=== PATIENT | female | born 1990 | race Caucasian/White ===

== ENCOUNTER 2023-07-12 07:59 | Outpatient (OUT) | payer OTHER, SELFPAY ==
--- NOTE | 2023-07-12 08:53 | PM.PRESUREVA ---
History of Present Illness History of Present Illness Chief complaint: strain of peroneal tendon Narrative: Patient presents for preadmission testing. The patient reports right ankle pain with muscle spasms. She states she has a long history of issues with this ankle and she's had three prior surgeries. She states she has limited range of motion of her ankle, her pain is worse after standing for long periods of time and the muscle spasms wake her from sleep at times. She does take tizanidine which seems to help. She denies numbness, tingling, weakness, or any other complaints. Review of Systems ROS Narrative REVIEW OF SYSTEMS: Negative except as stated in HPI, ten or more systems reviewed. Constitutional: No fever , chills, weakness ENT: No sore throat or epistaxis Cardiovascular: No edema, chest pain, palpitations, or activity intolerance Respiratory: No shortness of breath, cough, or wheezing Gastrointestinal: No abdominal pain, constipation, diarrhea, or vomiting Genitourinary: No dysuria or hematuria Neurological: No numbness, tingling, weakness, or headache Psychiatric: No mood changes [facility] Medical History (Updated 07/12/23 @ 08:58 by Debbie Antunez NP) Anxiety ?F41.9 - Anxiety disorder, unspecified (ICD-10) Arthritis ?M19.90 - Unspecified osteoarthritis, unspecified site (ICD-10) Depression ?F32.A - Depression, unspecified (ICD-10) Endometriosis ?N80.9 - Endometriosis, unspecified (ICD-10) Hallux rigidus ?M20.20 - Hallux rigidus, unspecified foot (ICD-10) Impingement of right ankle joint ?M25.871 - Other specified joint disorders, right ankle and foot (ICD-10) Peroneal tendinitis, right leg ?M76.71 - Peroneal tendinitis, right leg (ICD-10) Peroneal tendon tear ?S86.319A - Strain of muscle(s) and tendon(s) of peroneal muscle group at lower leg level, unspecified leg, initial encounter (ICD-10) PONV (postoperative nausea and vomiting) ?R11.2 - Nausea with vomiting, unspecified (ICD-10) ?Z98.890 - Other specified postprocedural states (ICD-10) Right ankle instability ?M25.371 - Other instability, right ankle (ICD-10) Seizures ?R56.9 - Unspecified convulsions (ICD-10) Strain of right peroneal muscle or tendon ?S86.311A - Strain of muscle(s) and tendon(s) of peroneal muscle group at lower leg level, right leg, initial encounter (ICD-10) 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 - Villonodular synovitis (pigmented), unspecified ankle and foot (ICD-10) Surgical History (Updated 07/11/23 @ 12:21 by Debbie Antunez NP) H/O arthroscopy of knee ?Z98.890 - Other specified postprocedural states (ICD-10) H/O foot surgery (10/21/21) ?Z98.890 - Other specified postprocedural states (ICD-10) H/O foot surgery (05/02/21) ?Z98.890 - Other specified postprocedural states (ICD-10) H/O laparoscopy ?Z98.890 - Other specified postprocedural states (ICD-10) History of ankle surgery (07/24/22) ?Z98.890 - Other specified postprocedural states (ICD-10) History of appendectomy ?Z90.49 - Acquired absence of other specified parts of digestive tract (ICD-10) Hx of tonsillectomy ?Z90.89 - Acquired absence of other organs (ICD-10) Family History (Updated 07/11/23 @ 12:15 by Debbie Antunez NP) Other Multiple sclerosis Social History (Updated 07/11/23 @ 12:22 by Debbie Antunez NP) Within the past year, how often did you have a drink containing alcohol: 2-3 times a week Smoking status: Current every day smoker Non-prescribed substance use: denies use Previous occupational history: MA @ [employer] Highest level of school completed/degree received: some college, no degree Meds Home Medications and Allergies Home Medications Medication Instructions Recorded Confirmed Type acyclovir 400 mg tablet 400 mg PO DAILY 07/12/23 07/12/23 History tizanidine 4 mg capsule 4 mg PO BID PRN muscle spasticity 07/12/23 07/12/23 History Allergies Allergy/AdvReac Type Severity Reaction Status Date / Time No Known Drug Allergies Allergy Verified 07/12/23 08:19 Exam Narrative Exam Narrative: Constitutional: Awake, alert, comfortable, well-appearing, nontoxic, interactive, vital signs as charted Head: Normocephalic, atraumatic Neck: Supple, normal appearance, normal range of motion, no meningeal signs, no lymphadenopathy Respiratory: No respiratory distress, breath sounds clear Cardiovascular: Regular rate and rhythm, strong and regular heart tones Musculoskeletal: Right lateral ankle tenderness with palpation, limited range of motion, good capillary refill, sensation intact Skin: No rashes or induration, no lesions, only visible skin inspected Neuro: No neurological deficits, normal sensation Psychiatric: Oriented ?3, normal affect Assessment and Plan Assessment and Plan (1) Strain of right peroneal muscle or tendon: (2) Peroneal tendon tear: (3) Impingement of right ankle joint: Plan Right peroneal tendon transfer, right ankle arthroscopy scheduled with Dr. Robert 07/26/2023.
== END 2023-07-12 08:00 | disposition home or self-care (01) ==
LOC: PST 08:00
PROVIDERS: PCP Family Medicine; Visit Provider Podiatrist Foot & Ankle Surgery
DX: Z01.818 Encounter for other preprocedural examination (principal); S86.311S Strain of muscle(s) and tendon(s) of peroneal muscle group at lower leg level, right leg, sequela; M25.871 Other specified joint disorders, right ankle and foot
CPT/HCPCS: G0463

== ENCOUNTER 2023-07-26 06:12 | Day surgery (SDC) | payer OTHER, SELFPAY ==
[2023-07-12 08:42] VITALS: BP 135/88; PULSE 68; RESP 18; TEMP 36.4; O2SAT 99; BMI 26.9
[2023-07-26] VITALS (14 sets, daily range): BP systolic 103–145; BP diastolic 73–92; PULSE 55–93; RESP 12–20; TEMP 36.1–36.8; O2SAT 95–99
[2023-07-26 06:25] LABS: Basophils Absolute Auto 0.1 10^3/uL (0.0-0.1); Basophils Percent Auto 0.5 % (0.2-2.0); Eosinophils Absolute Auto 0.4 10^3/uL (0.0-0.7); Eosinophils Percent Auto 3.8 % (0.9-7.0); Hematocrit 38.6 % (36.0-48.0); Hemoglobin 12.6 g/dL (12.0-16.0); Immature Granulocytes Abs Auto 0.03 10^3/uL (0.00-0.03); Immature Granulocytes Pct Auto 0.3 % (0.0-0.5); Lymphocytes Absolute Auto 2.9 10^3/uL (1.2-3.8); Lymphocytes Percent Auto 29.9 % (20.5-60.0); Mean Corpuscular HGB Conc 32.6 g/dL (29.9-35.2); Mean Corpuscular Hemoglobin 30.9 pg (26.7-34.0); Mean Corpuscular Volume 94.6 fL (81.0-99.0); Mean Platelet Volume 10.4 fL (9.5-13.5); Monocytes Absolute Auto 0.7 10^3/uL (0.3-0.8); Monocytes Percent Auto 6.8 % (1.7-12.0); Neutrophils Absolute Auto 5.8 10^3/uL (1.4-6.5); Neutrophils Percent Auto 58.7 % (43.0-75.0); Platelet Count 229 10^3/uL (150-450); Red Blood Count 4.08 10^6/uL (4.20-5.40); Red Cell Distribution Width 12.9 % (11.0-15.0); White Blood Count 9.8 10^3/uL (4.0-11.0)
[2023-07-26 06:38] LABS: Glucometer 95 mg/dL (74-106)
[2023-07-26 06:40] LABS: HCG Qualitative NEGATIVE (NEGATIVE)
[2023-07-26] MEDS: LACTATED RINGER'S SOLUTION 1,000 ML 50 ML IV (07:01)
[2023-07-26] MEDS: SCOPOLAMINE 1 MG/3 DAYS TRANSDERM PATCH 1 PATCH TD (07:19)
[2023-07-26] MEDS: CEFAZOLIN SODIUM/DEXTROSE,ISO 2 GM/50 ML PIGGYBACK IV (07:50)
--- NOTE | 2023-07-26 08:26 | PM.ORONB ---
Brief Operative Note Date of procedure: 07/26/23 Preoperative Details Reason for procedure: patient is a 32-year-old female well known to my practice who underwent right 1st MPJ fusion on 10/21/21 as well as right lateral ankle stabilization, peroneal tendon repair and ankle arthroscopy on 07/24/22. dorsally she began having worsening pain along the peroneal tendons associated with cramping of the lateral compartment muscles. Follow-up MRI was obtained which does show postsurgical changes but no evidence of osteochondral defect in the collateral ligaments although there were postsurgical changes did appear to be intact. There was a longitudinal split tear of the brevis within the fibular groove indicating repeat tear versus failure to heal the tendon repair performed last year. She is initially treated nonsurgically but unfortunately did not respond given her symptoms have only worsened over the last six months patient wished to proceed with surgical revision. Today in preoperative holding she related to worsening pain on the plantar lateral aspect of the 5th metatarsal head associated with a prominent callus. Examination revealed enlargement of the lateral eminence of the 5th metatarsal head and adductovarus reducible contracture of the 5th toe. she wished to proceed with revision peroneal tendon repair as well as ankle arthroscopy given her symptoms of impingement in the anterior medial ankle as well as correction of the tailor's bunion and 5th hammertoe. She is educated all potential risks and benefits and all questions were answered to her satisfaction
--- NOTE | 2023-07-26 08:33 | P.ORON_ITS ---
Brief Operative Note Date of procedure: 07/26/23 Pre-op diagnosis: right peroneal tendon tear, ankle impingement,possible lateral ankle instab Post-op diagnosis: other (right peroneal tendon tear, ankle impingement, possible lateral ankle instability, tailor's bunion and 5th hammertoe) Procedure: PROCEDURES PERFORMED: Ankle arthroscopy, peroneal tendon transfer, tailor's bunionectomy, arthroplasty PIPJ of 5th toe, intraoperative stress examination of right ankle Application of short leg splint with all procedures performed on the ____ ankle INTRAOPERATIVE FINDINGS: PROCEDURE IN DETAIL: Patient was identified in pre op and consent was reviewed. Correct side and site were identified and marked. Pre-op antibiotics were started. Patient was brought to OR suite and place on table in a supine position. General anesthesia was administered. Tourniquet applied. under intraoperative fluoroscopy, bilateral ankles were stressed in anterior drawer and varus and valgus tilt. Stability was determined to be sufficient bilaterally as well as symmetric. Operative e xtremity was prepped and draped in usual sterile fashion. Formal time-out was performed and the foot/ankle were exsanguinated and tourniquet inflated. A 15 blade was used to create anterior medial ankle portal followed by use of hemostat and trochar then the arthroscopic camera was inserted. Anterior lateral portal was similarly created in standard safe location after identifying intermediate dorsal cutaneous nerve. All impingement and synovitic tissue was removed using a 3.5 mm aggressive shaver. No cartilage defect was noted. Arthroscopic instrumention was then removed. The portals were then closed with nylon suture. Peroneal tendons: Lateral ankle incision was made over the posterior aspect of the fibular malleolus and extend past the fibular tip. Dissection was then carried posteriorly. Peroneal retinaculum and tendon sheath were incised to expose the peroneal tendons. The peroneal tendons were dislocated from the fibular groove for close inspection. There was synovitis and low lying peroneal brevis muscle which was excised. Inspection of the tendons demonstrated The tendons were then relocated in the fibular groove which was of adequate depth. Range of motion of the ankle demonstrated no subluxation and smooth gliding of the peroneal tendons. Lateral Ankle Stabilization: Meticulous blunt dissection was used to expose the ATFL and associated capsular tissue. The ATFL was thickend and lax upon stress examination. The ATFL was incised and arthrotomy was performed. The periosteum off of the distal lateral fibula was elevated from the fibular tip. A rongeur was used on the distal anterior fibular malleolus to create a trough. Drill holes were created in the trough created on distal fibula. Two ---- mm suture anchors were inserted into the drill holes created according to manufacture's directions. All sutures in all were passed through the ATFL then passed through the extensor retinaculum. The foot was then held in maximum dorsiflexion and eversion and the sutures were tied. The sutures were then passed through the periosteum of the fibula to reapproximate all capsular and periosteal tissue. The sututres were then tied and cut. Anterior drawer was negative and ankle had good ROM. The surgical site was irrigated with copious amounts sterile saline. The tendon sheath was reapproximated and the superior peroneal retinaculum repaired with a pants over vest absorbable suture. With attention to the 5th digit a semi-elliptical dorsal incision was created over the PIPJ. Sharp and blunt dissection down to the extensor tendon was performed. The tendon was incised transversely then reflected proximally. A sagittal saw was used to remove the proximal phalanx head. The site was flushed with sterile saline. incision was placed over the dorsal lateral aspect of the 5th metatarsal phalangeal joint. Comminution sharp and blunt dissection gained access to the capsule which was reflected and a McGlamry was used to release the joint. A sagittal saw was used to remove the lateral eminence of the 5th metatarsal head which was then excised and passed back table. A rasp was then used to contour the head. No bony prominence remained. all surgical sites were flushed with copious saline. The tendon to the 5th toe was repaired with absorbable suture. incision was then closed in layers. the tourniquet was deflated with a prompt hyperemic response. A dry sterile dressing consisting of Xeroform on the incisions followed by 4 x 4 gauze, ABDs, and Kerlix were applied. Multiple layers of cast padding were then applied to ensure all bony prominences were well-padded. A plaster posterior splint was then applied which was held in place by Adams wraps. Capillary refill time to all digits was evaluated and had appropriate response. POSTOPERATIVE PLAN: Discharge home under family's care Post op instructions provided verbally and written prescription(s) were placed in chart [facility]B operative foot/ankle x1 wks Follow-up in 1 week Anesthesia: regional and General-LMA Surgeon: Marcellus Robert Personnel Clerk: Kennedy Vila Estimated blood loss (mL): 10 Pathology: other (peroneal tendon) Condition: stable Disposition: PACU
[2023-07-26] MEDS: BUPIVACAINE HCL 0.5% PF 50 MG/10 ML VIAL 20 ML INJ (09:53)
[2023-07-26 10:30] LABS: Glucometer 110 mg/dL (74-106)
[2023-07-26] MEDS: PROMETHAZINE HCL 25 MG/ML VIAL 12.5 MG IV (10:40)
[2023-07-26] MEDS: OXYCODONE HCL/ACETAMINOPHEN 5MG/325MG 1 TAB PO (10:40)
[2023-07-26] MEDS: HYDROMORPHONE HCL 0.5 MG/0.5 ML SYRINGE 0.4 MG IV (10:40)
== END 2023-07-26 11:50 | disposition home or self-care (01) ==
PROVIDERS: Anesthesiology; PCP Family Medicine; Visit Provider Podiatrist Foot & Ankle Surgery
PROC: (CPT 27691; principal; 2023-07-26 07:30)
DX: M25.871 Other specified joint disorders, right ankle and foot (principal); S86.311S Strain of muscle(s) and tendon(s) of peroneal muscle group at lower leg level, right leg, sequela; F41.9 Anxiety disorder, unspecified; F32.A Depression, unspecified; M25.371 Other instability, right ankle; M12.2 Villonodular synovitis (pigmented); M76.71 Peroneal tendinitis, right leg; Z90.49 Acquired absence of other specified parts of digestive tract; F17.210 Nicotine dependence, cigarettes, uncomplicated; M62.838 Other muscle spasm; M20.41 Other hammer toe(s) (acquired), right foot; M21.621 Bunionette of right foot
CPT/HCPCS: 27691; 28285; 29898; 36415; 64445; 82948; 84703; 85025; 88304; J1170; J2704

== ENCOUNTER 2024-06-25 12:14 | Outpatient (OUT) | payer OTHER, SELFPAY ==
--- NOTE | 2024-06-25 | XR_ITS ---
The [address] [address] Patient Name: RAQUEL GOODMAN MRN: [id number] date: 1990 Sex: F Assigned Patient Location: [facility] Current Patient Location: Accession/Order Number: [id number] Exam Date: 06/25/2024 12:16 Report Date: 06/27/2024 07:03 At the request of: ILSA PHILIP Procedure: XR ankle RT min 3V PROCEDURE: XR ankle RT min 3V COMPARISON: None. HISTORY: RIGHT ANKLE PAIN FINDINGS: BONES:No fracture, acute abnormality, or significant arthropathy. SOFT TISSUES:Negative. No visible soft tissue swelling. EFFUSION:None visible. OTHER: Negative. XR/XR ankle RT min 3V IMPRESSION: No acute abnormality Electronically authenticated by: PIEDAD SANDOVAL Date: 06/27/2024 07:03
--- OUTSIDE RECORDS SUMMARY | 2024-06-25 12:17 | XMS_ITS | CCD ---
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 Comment on above: Result Comment: HDL CHOL ATP-III CLASSIFICATION Cardiovascular Risk HDL > or equal to 60 mg/dL LOW HDL < 40 mg/dL HIGH Performed By: #### C MP, LIPID, TSH3, CBC #### [facility] [address] [place] [id number] [place] Cholesterol.total/Choles terol in HDL [Mass ratio] 3.9 {ratio} Normal <5.0 [facility] Comment on above: Performed By: #### C MP, LIPID, TSH3, CBC #### [facility] [address] [place] [id number] [place] LDL Cholesterol,Calculated 105 mg/dL High 0-100 [facility] Comment on above: Result Comment: LDL ATP III CLASSIFICATION LDL less than 100 mg/dL Optimal LDL 100-129 mg/dL Near or above optimal LDL 130-159 mg/dL Borderline high LDL 160-189 mg/dL High LDL greater than 189 mg/dL Very high Performed By: #### C MP, LIPID, TSH3, CBC #### [facility] [address] [place] [id number] [place] Triglyceride w/Reflex 66 mg/dL Normal 0-149 [facility] Comment on above: Result Comment: TRIG ATP III CLASSIFICATION TRIG less than 150 mg/dL Normal TRIG 150-199 mg/dL Borderline high TRIG 200-500 mg/dL High TRIG greater than 500 mg/dL Very high Standard traceable to the Center for Disease Conrtrol and Prevention (CDC) test method. Performed By: #### C MP, LIPID, TSH3, CBC #### [facility] [address] VLDL CHOLESTEROL 13 mg/dL Normal [facility] Comment on above: Performed By: #### C MP, LIPID, TSH3, CBC #### [facility] [address] [place] [id number] [facility] Lymphocytes Auto (Bld) [#/Vo l]Ordered By: Gerhard York on 11-30-2023 Lymphocytes (Bld) [#/Vol] 2.3 10*3/uL 1.00-4.8 [facility] Lymphocytes/100 WBC Auto (Bl d)Ordered By: Gerhard York on 11-30-2023 Lymphocytes/100 WBC (Bld) 22.4 % . [facility] MCH Auto (RBC) [Entitic mass ]Ordered By: Gerhard York on 11-30-2023 MCH (RBC) [Entitic mass] 30.4 pg 24.7-34.3 [facility] MCHC Auto (RBC) [Mass/Vol]Or dered By: Gerhard York on 11-30-2023 MCHC (RBC) [Mass/Vol] 33.1 g/dL 32.0-35.0 [facility] MCV Auto (RBC) [Entitic vol] Ordered By: Gerhard York on 11-30-2023 MCV (RBC) [Entitic vol] 92.0 fL 80-100 [facility] Monocytes Auto (Bld) [#/Vol] Ordered By: Gerhard York on 11-30-2023 Monocytes (Bld) [#/Vol] 0.7 10*3/uL 0.0-0.8 [facility] Monocytes/100 WBC Auto (Bld) Ordered By: Gerhard York on 11-30-2023 Monocytes/100 WBC (Bld) 6.4 % . [facility] Neutrophils Auto (Bld) [#/Vo l]Ordered By: Gerhard York on 11-30-2023 Neutrophils (Bld) [#/Vol] 7.0 10*3/uL 1.8-7.7 [facility] Neutrophils/100 WBC Auto (Bl d)Ordered By: Gerhard York on 11-30-2023 Neutrophils/100 WBC (Bld) 66.5 % . [facility] No Panel InformationOrdered By: Gerhard York on 11-30-2023 Estimated GFR (CKD-EPI) > 60.0 mL/Min [facility] Creatinine Clearance (Chem N/A [facility] Nucleated erythrocytes [Pres ence] in Blood by Automated countOrdered By: Gerhard York on 11-30-2023 Nucleated RBC Auto Ql (Bld) 0.1 /100{WBC} 0-0.5 [facility] Platelet mean volume Auto (B ld) [Entitic vol]Ordered By: Gerhard York on 11-30-2023 Platelet mean volume (Bld) [Entitic vol] 10.0 fL 6.3-10.7 [facility] Platelets Auto (Bld) [#/Vol] Ordered By: Gerhard York on 11-30-2023 Platelets (Bld) [#/Vol] 211 10*3/uL 150-450 [facility] Potassium [Moles/volume] in Serum or PlasmaOrdered By: Gerhard York on 11-30-2023 Potassium [Moles/Vol] 4.1 mmol/L 3.5-5.1 [facility] Protein [Mass/volume] in Ser um or PlasmaOrdered By: Gerhard York on 11-30-2023 Protein [Mass/Vol] 6.3 g/dL 6.4-8.9 [facility] RBC Auto (Bld) [#/Vol]Ordere d By: Gerhard York on 11-30-2023 RBC (Bld) [#/Vol] 4.40 10*6/uL 3.60-5.00 [facility] Serum or plasma albumin/glob ulin mass ratioOrdered By: Gerhard York on 11-30-2023 Albumin/Globulin [Mass ratio] 2.2 {ratio} [facility] Serum or plasma anion gap de terminationOrdered By: Gerhard York on 11-30-2023 Anion gap [Moles/Vol] 7.0 mmol/L 6.0-15.0 [facility] Serum or plasma high density lipoprotein (HDL) cholesterol measurementOrdered By: Gerhard York on 11-30-2023 Cholesterol in HDL [Mass/Vol] 41 mg/dL 23-92 [facility] Comment on above: HDL CHOL ATP-III CLA SSIFICATION Cardiovascular RiskHDL > or equal to 60 mg/dL LOWHDL < 40 mg/dL HIGH Serum or plasma total choles terol/high density lipoprotein (HDL) cholesterol mass ratOrdered By: Gerhard York on 11-30-2023 Cholesterol.total/Choles terol in HDL [Mass ratio] 3.9 {ratio} <5.0 [facility] Sodium [Moles/volume] in Ser um or PlasmaOrdered By: Gerhard York on 11-30-2023 Sodium [Moles/Vol] 139 mmol/L 136-145 [facility] Thyroid Stimulating Hormoneo n 11-30-2023 TSH Qn 2.73 m[IU]/L Normal 0.45-5.33 [facility] Comment on above: Result Comment: PERF ORMED BY: [place] [address] PATHOLOGIST BRASS CUTTER AMADA GUTHRIE M.D. Performed By: #### C MP, LIPID, TSH3, CBC #### [address] Thyrotropin [Units/volume] i n Serum or PlasmaOrdered By: Gerhard York on 11-30-2023 TSH Qn 2.73 m[IU]/L 0.45-5.33 [facility] Triglyceride [Mass/volume] i n Serum or PlasmaOrdered By: Gerhard York on 11-30-2023 Triglyceride [Mass/Vol] 66 mg/dL 0-149 [facility] Comment on above: TRIG ATP III CLASSIF ICATIONTRIG less than 150 mg/dL NormalTRIG 150-199 mg/dL Borderline highTRIG 200-500 mg/dL High TRIG greater than 500 mg/dL Very highStandard traceable to the Center for Disease Conrtrol and Prevention (CDC) test method. Urea nitrogen [Mass/volume] in Serum or PlasmaOrdered By: Gerhard York on 11-30-2023 Urea nitrogen [Mass/Vol] 7 mg/dL 7-25 [facility] WBC Auto (Bld) [#/Vol]Ordere d By: Gerhard York on 11-30-2023 WBC (Bld) [#/Vol] 10.5 10*3/uL 3.8-11.6 [facility] MR ankle RT wo conon 023 MR ankle RT wo con [facility] [place] [address] MRI Report Signed Patient: Arianne Bocanegra MR#: [id number] : 1990 Acct:[id number] Age/Sex: 32 / F ADM Date: 02/28/23 Loc: MR [facility]: [facility]: Ilsa Robert DPM, [place] Copies to: Ilsa Robert DPM, Ordering Provider: Ilsa Robert DPM, MS Date of Service: 02/28/23 MR/MR ankle RT wo con: [id number] MR ankle RT wo con 02/28/2023 6:00 PM SIGNS AND SYMPTOMS: Continued right ankle pain, pain along the lateral aspect posterior to the lateral malleolus. PROTOCOL: Multiplanar multisequence MR images of the right ankle were obtained without IV contrast COMPARISON: 06/12/2022 FINDINGS: Alignment: Normal. Fluid: Tibiotalar: No joint effusion. Subtalar: No joint effusion. Medial: Medial malleolus: Normal. Tendons: Posterior tibial tendon: There is linear T2 signal traversing the posterior tibial tendon near the insertion suspicious for a split-thickness tear. This was not visualized on the prior exam. Flexor digitorum longus: Intact. Flexor hallucis longus: Intact. Ligaments: Deltoid ligament complex - superficial: Intact. Deltoid ligament complex - deep: Intact. Spring (plantar calcaneo-navicular) ligament: Intact. Lateral: Lateral malleolus: Intact with postsurgical changes noted suggesting previous ligament repair. This is not compared to the prior exam. Retromalleolar groove: Normal. Tendons: Peroneus longus: Intact. Peroneus brevis: There is a split thickness tear of the Peroneus brevis tendon which is not compared to the prior exam with edema consistent with tenosynovitis.. Peroneal retinaculum: Intact. Ligaments: Anterior inferior tibiofibular (syndesmosis): There is evidence of prior disruption.. Posterior inferior tibiofibular (syndesmosis): Intact. Anterior talofibular ligament: Previously disrupted. This is new compared to the prior exam.. Calcaneofibular ligament: Previously disrupted. This is new when compared to the prior exam.. Posterior talofibular ligament: Intact. Posterior: Posterior talus: Normal. Intermalleolar ligament: Intact. Achilles tendon: Intact. Plantar fascia: Intact. Anterior: Tendons: Anterior tibial tendon: Intact. Extensor hallucis longus: Intact. Extensor digitorum longus: Intact. Tibiotalar joint: Normal. Subtalar joint: Normal. Bones (other than subarticular marrow): Normal. Muscles: Normal Tarsal tunnel: Normal. Sinus tarsi: Normal. MR/MR ankle RT wo con IMPRESSION: There is a split thickness tear of the Peroneus brevis tendon which is not compared to the prior exam with edema consistent with tenosynovitis.. There is linear T2 signal traversing the posterior tibial tendon near the insertion suspicious for a split-thickness tear. This was not visualized on the prior exam. There has been interval disruption and attempted repair of the anterior inferior tibiofibular ligaments, anterior talofibular ligament, and calcaneofibular ligament. Impression dictated by: Oscar Schmidt M.D.03/01/2023 8:17 AM Dictation Location: [place] [address] Transcribed By: [facility] 03/01/23816 Dictated By: Oscar Schmidt II, MD 03/01/23 0806 Signed By: 03/01/23816 Normal [facility] Choriogonadotropin.beta subu nit [Units/volume] in Serum or PlasmaOrdered By: Bladimir Florian on 12-15-2022 HCG.beta subunit Qn 0.64 m[IU]/mL [facility] Comment on above: Approximate Approxim ate hCG Gestational Age Range (mIU/ml) (weeks)0.2-1 5-50 1-2 50-500 2-3 100-5,000 3-4 500-10,000 4-5 1,000-50,000 5-6 10,000-100,000 6-8 15,000-200,000 -12 10,000-100,000 XR FOOT RT 2Von 07-25-2022 XR FOOT RT 2V EXAM: XR FOOT RT 2V HISTORY: Pain COMPARISON: None. TECHNIQUE: 21 seconds of fluoroscopy. 6 images. FINDINGS: 5 fluoroscopic images of the ankle and forefoot. No definite ankle instability with stress IMPRESSION: Fluoroscopic images as described Electronically authenticated by: PIEDAD SANDOVAL Date: 2022-07-25 07:26 Normal [facility] POINT OF CARE GLUCOSEon 07-11 Glucose [Mass/Vol] 103 mg/dL Normal 74-106 [facility] Comment on above: Performed By: #### P OCGLUC #### [facility] [address] [place] [address] Dr. Neli Clarke Glucose [Mass/Vol] 102 mg/dL Normal 74-106 [facility] Comment on above: Performed By: #### P OCGLUC #### [facility] [address] [place] [address] [address] Neli Clarke PREG HCG QUALon 07-24-2022 , QUAL Negative Normal NEGATIVE [facility] Comment on above: Performed By: #### P REG #### [facility] [address] [place] [address] Dr. Neli Clarke [facility] 07-11 SARS-CoV-2 (COVID-19) RNA PERLA+probe Ql (Unsp spec) Not detected Normal NOT DETECTED [facility] Comment on above: Result Comment: This test is not yet approved or cleared by the [place] FDA. When there are no FDA-approved or cleared tests available, and other criteria are met, FDA can make tests available under an emergency access mechanism called an Emergency Use Authorization (EUA). The EUA for this test is supported by the [place] of Health and Human Service's (HHS's) declaration that circumstances exist to justify the emergency use of in vitro diagnostics for the detection and/or diagnosis of the virus that causes COVID-19. This EUA will remain in effect (meaning this test can be used) for the duration of the COVID-19 declaration justifying emergency of IVDs, unless it is terminated or revoked by FDA (after which the test may no longer be used). When diagnostic testing is negative, the possibility of a false negative should be considered in the context of a patient's recent exposures and the presence of clinical signs and symptoms consistent with SARS-CoV-2. Performed By: #### C [facility] #### [facility] [address] [place] [address] [address] Neli Negron 03-29-2020 CNOV Office Visit ([facility] ) ANASTASIAARIANNE ([id number]) 1990 F Date Time Provider Department 03/29/20 10:40 AM LIOR HARDIN JR During your visit today, we recorded the following information about you: Lior Hardin Jr, MD 03/29/2020 12:52 PM Signed HISTORY OF PRESENT ILLNESS: Arianne is a 29 year old female. She is here for evaluation of Left knee pain. The patient has a long-standing history of left knee problems. She had a lateral release done on the left side for patellofemoral instability. She reports long-standing knee issues, with one year of worsening pain since her knee gave out at work. The pain is usually medial but now she is having lateral and posterior knee pain. The patient reports that she feels the knee needs to be replaced due to the severity of her symptoms. Injury:Yes, injury at work a year ago where the knee gave out Metal allergy: No Location: Knee Left Pain: Yes LOCATION: Lateral pain as well as posterior pain left knee PAIN SCALE: 7 on a scale of 0-10 PAIN CHARACTER: aching and sharp DURATION: (How long have you had the pain?) 1 years FREQUENCY: (How often does the pain occur?) occurs daily Onset: progressive Quality: aching and sharp Swelling: Patient notes intermittent swelling of the joint. Aggravating/alleviatin g factors:Aggravating Factors: Bending or twisting motions, Deep squatting, Rapid change of direction, Regular daily ambulation Alleviating Factors: Rest Mechanical symptoms: catching, instability and locking Radiation: No Activities: walking Restriction: none Progression: Worsening Previous treatment: no medications, physical therapy, injections, bracing, advanced imaging or surgical evaluation NSAIDS: Patient has not used any prescription, OTC or herbal medications to aid in relief of this problem. PT:No physical therapy program has been initiated. MEDICATIONS Current Outpatient Medications on File Prior to Visit Medication Sig - ETONOGESTREL (NEXPLANON SDRM) by SUBDERMAL route. No current facility-administered medications on file prior to visit. ALLERGIES ALLERGIES No Known Allergies PAST MEDICAL HISTORY No past medical history on file. PAST SURGICAL HISTORY No past surgical history on file. SOCIAL HISTORY Marital Status: Tobacco: Smoker Alcohol: Unknown FAMILY HISTORY Does a similar condition to what you are experiencing run in your family? 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 No ROS: Have you or are you being treated for any conditions in the following areas: Head: No Eyes: No ENT: No Lungs: No Heart/BP: No Gastrointestinal: No Nephrology: No Neurological: No Psych: No Diabetes: No Rheumatology: No PHYSICAL EXAM: Examination of the Left Knee Gait: Normal No Limp antalgic:left Inspection: neutral Symmetry: Swelling no Redness no Ecchymosis no Effusion: 1 Palpation: Tenderness Yes: Knee: Lateral Joint Line and Medial and lateral patellar borders ROM: Knee- Normal Strength: 5 Stability: ligamentous instability with valgus/varus and anterior/posterior drawer stressing no Kavon: Positive Thessaly: Positive Modified Apley: Positive [place]: Negative Patellar Compression: Positive Neurological/Vascular: Sensation grossly intact. Dorsalis pedis pulse palpable and 2+. Skin: Normal RADIOGRAPHS (personally reviewed): The patient's maintaining a joint space between the femur and the tibia bilaterally. She has lateral patellar tilt bilaterally left worse than the right. MRI: None DIAGNOSIS Encounter Diagnosis ICD-10-CM 1. Lateral meniscus derangement, left M23.301 MRI KNEE WO IVCON LT 2. Patellofemoral instability of left knee with pain M25.362 M25.562 PLAN The patient has clinical findings as well as subjective complaints that could be consistent with a meniscal tear. The patient is having issues where she is almost falling down. She is working in a job where she is moving heavy pieces of metal. Obviously this will not do. We're going to put in for an MRI, looking for a lateral meniscal tear. PROCEDURE: Procedures Lior Hardin Jr, MD Referring Provider: SELF [[id number]] Allergies As of Date: 03/29/2020 (No Known Allergies) Date Reviewed: 03/29/2020 Reviewed by: Audrey Mott Ma - Fully Assessed Reason for Visit: Left Knee Pain [1208] New [706420] Primary Visit Diagnosis:Lateral meniscus derangement, left [M23.301] Other Visit Diagnosis:Patellofemor al instability of left knee with pain [M25.362, M25.562] Order(s):MRI KNEE WO IVCON LT [[id number]] Order #: [id number] FUTURE Prescriptions as of 03/29/2020 Sig: NEXPLANON SDRM by SUBDERMAL route. Problem List As Of Date 03/29/2020 Noted Resolved Knee pain [M25.569] 10/06/2011 Sprain, knee [S83.90XA] 04/30/2015 Synovitis of knee [M65.9] 04/30/2015 Encounter Status:Closed by LIOR HARDIN JR, MD on 03/29/20 [facility] PROGRESSon 03-29-2020 PROGRESS HNO ID: [id number] Author: Lior Hardin Jr. Service: ? Author Type: Physician Type: Progress Notes Filed: 03/29/2020 12:52 PM Note Text: HISTORY OF PRESENT ILLNESS: Arianne is a 29 year old female. She is here for evaluation of Left knee pain. The patient has a long-standing history of left knee problems. She had a lateral release done on the left side for patellofemoral instability. She reports long-standing knee issues, with one year of worsening pain since her knee gave out at work. The pain is usually medial but now she is having lateral and posterior knee pain. The patient reports that she feels the knee needs to be replaced due to the severity of her symptoms. Injury:Yes, injury at work a year ago where the knee gave out Metal allergy: No Location: Knee Left Pain: Yes LOCATION: Lateral pain as well as posterior pain left knee PAIN SCALE: 7 on a scale of 0-10 PAIN CHARACTER: aching and sharp DURATION: (How long have you had the pain?) 1 years FREQUENCY: (How often does the pain occur?) occurs daily Onset: progressive Quality: aching and sharp Swelling: Patient notes intermittent swelling of the joint. Aggravating/alleviatin g factors:Aggravating Factors: Bending or twisting motions, Deep squatting, Rapid change of direction, Regular daily ambulation Alleviating Factors: Rest Mechanical symptoms: catching, instability and locking Radiation: No Activities: walking Restriction: none Progression: Worsening Previous treatment: no medications, physical therapy, injections, bracing, advanced imaging or surgical evaluation NSAIDS: Patient has not used any prescription, OTC or herbal medications to aid in relief of this problem. PT:No physical therapy program has been initiated. MEDICATIONS Current Outpatient Medications on File Prior to Visit Medication Sig - ETONOGESTREL (NEXPLANON SDRM) by SUBDERMAL route. No current facility-administered medications on file prior to visit. ALLERGIES ALLERGIES No Known Allergies PAST MEDICAL HISTORY No past medical history on file. PAST SURGICAL HISTORY No past surgical history on file. SOCIAL HISTORY Marital Status: Tobacco: Smoker Alcohol: Unknown FAMILY HISTORY Does a similar condition to what you are experiencing run in your family? 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 No ROS: Have you or are you being treated for any conditions in the following areas: Head: No Eyes: No ENT: No Lungs: No Heart/BP: No Gastrointestinal: No Nephrology: No Neurological: No Psych: No Diabetes: No Rheumatology: No PHYSICAL EXAM: Examination of the Left Knee Gait: Normal No Limp antalgic:left Inspection: neutral Symmetry: Swelling no Redness no Ecchymosis no Effusion: 1 Palpation: Tenderness Yes: Knee: Lateral Joint Line and Medial and lateral patellar borders ROM: Knee- Normal Strength: 5 Stability: ligamentous instability with valgus/varus and anterior/posterior drawer stressing no Kavon: Positive Thessaly: Positive Modified Apley: Positive [place]: Negative Patellar Compression: Positive Neurological/Vascular: Sensation grossly intact. Dorsalis pedis pulse palpable and 2+. Skin: Normal RADIOGRAPHS (personally reviewed): The patient's maintaining a joint space between the femur and the tibia bilaterally. She has lateral patellar tilt bilaterally left worse than the right. MRI: None DIAGNOSIS Encounter Diagnosis ICD-10-CM 1. Lateral meniscus derangement, left M23.301 MRI KNEE WO IVCON LT 2. Patellofemoral instability of left knee with pain M25.362 M25.562 PLAN The patient has clinical findings as well as subjective complaints that could be consistent with a meniscal tear. The patient is having issues where she is almost falling down. She is working in a job where she is moving heavy pieces of metal. Obviously this will not do. We're going to put in for an MRI, looking for a lateral meniscal tear. PROCEDURE: Procedures Lior Hardin Jr, MD Normal [facility] PROGRESS HNO ID: [id number] Author: Ally DominiqueRt) Mimi Service: ? Author Type: Inside Sales Representative Type: Progress Notes Filed: 03/29/2020 10:29 AM Note Text: Radiology Service Progress Note PATIENT NAME: Arianne Reyes DATE OF SERVICE: March 29, 2020 TIME: 10:26 AM PATIENT IDENTITY VERIFICATION COMPLETED USING TWO (2) IDENTIFIERS: Name and Date of confirmed by patient verbally. FALL SCREENING: Has the patient had 2 falls in the last year or 1 fall with injury or currently using an Ambulatory Assistive Device (Walker, Cane, Wheelchair, Crutches, etc.)? No PATIENT GENDER DATA: Female. status: : No status: NO. PATIENT RELEVANT IMPLANT DATA REVIEWED: Not Applicable RADIOLOGY DEPARTMENT: General X-ray: Exam(s) Completed: Lower Extremity X-Ray(s): Knee, AP / Lat / Tunne / Merchant Left and Wt. Bearing: PERIPHERAL IV DATA: Not applicable SIGNED BY: Suyapa Conway RT March 29, 2020 10:26 AM Normal [facility] XR KNEE 4V AP/PA BOTH+LAT/ME R LTon 03-29-2020 XR KNEE 4V AP/PA BOTH+LAT/EFFIE LT * * *Final Report* * * DATE OF EXAM: Mar 29 2020 10:29AM AFR 5202 - XR KNEE 4V AP/PA BOTH+LAT/EFFIE LT / PROCEDURE REASON: Pain * * * * Physician Interpretation * * * * X-RAYS LEFT KNEE HISTORY: medail left knee pain. Pain TECHNIQUE: 4 views of the left knee. COMPARISON: None RESULT: No fracture or dislocation. Joint spaces are maintained. No joint effusion. IMPRESSION: Unremarkable exam left knee. Table Maker: TIARRA Transcribe Date/Time: Mar 29 2020 2:21P Dictated by : LISA CANALES MD This examination was interpreted and the report reviewed and electronically signed by: LISA CANALES MD on Mar 29 2020 2:21PM EST [id number] Normal [facility] Vital Signs Date Time Vital Sign Value Performing Clinician Facility 12-04-2023 14:03-0400 Body height 162.56 cm DO Gerhard Kuns Work Phone: [facility] 12-04-2023 14:03-0400 Body mass index (BMI) [Ratio] 27.3 kg/m2 DO Gehrard Kuns Work Phone: [facility] 12-04-2023 14:03-0400 Body weight 72.12 kg DO Gerhard Kuns Work Phone: [facility] 12-04-2023 14:03-0400 Diastolic blood pressure 75 mm[Hg] DO Gerhard Kuns Work Phone: [facility] 12-04-2023 14:03-0400 Heart rate 84 /min DO Gerhard Kuns Work Phone: [facility] 12-04-2023 14:03-0400 Respiratory rate 18 /min DO Gerhard Kuns Work Phone: [facility] 12-04-2023 14:03-0400 SaO2% (BldA) [Mass fraction] 96 % DO Gerhard Kuns Work Phone: [facility] 12-04-2023 14:03-0400 Systolic blood pressure 120 mm[Hg] DO Gerhard Kuns Work Phone: [facility] 01-25-2023 16:00-0500 Body height 165.1 cm Gerhard Kuns Other [facility] Other 10-04-2022 16:00-0500 Body mass index (BMI) [Ratio] 27.12 kg/m2 Gerhard Kuns Other [facility] Other 10-04-2022 16:00-0500 Body weight 73.94 kg Gerhard Kuns Other [facility] Other 10-04-2022 16:00-0500 Diastolic blood pressure 86 mm[Hg] Gerhard Kuns Other [facility] Other 10-04-2022 16:00-0500 Respiratory rate 16 /min Gerhard Kuns Other [facility] Other 10-04-2022 16:00-0500 SaO2% (BldA) [Mass fraction] 98 % Gerhard Kuns Other [facility] Other 10-04-2022 16:00-0500 Systolic blood pressure 126 mm[Hg] Gerhard Kuns Other [facility] Other 07-06-2022 15:00-0400 Body height 165.1 cm Gerhard Kuns Other [facility] Other 07-06-2022 15:00-0400 Body mass index (BMI) [Ratio] 26.46 kg/m2 Gerhard Kuns Other [facility] Other 07-06-2022 15:00-0400 Body weight 72.12 kg Gerhard Kuns Other [facility] Other 07-06-2022 15:00-0400 Diastolic blood pressure 70 mm[Hg] Gerhard Kuns Other [facility] Other 07-06-2022 15:00-0400 Respiratory rate 18 /min Gerhard Kuns Other [facility] Other 07-06-2022 15:00-0400 SaO2% (BldA) [Mass fraction] 99 % Gerhard Kuns Other [facility] Other 07-06-2022 15:00-0400 Systolic blood pressure 112 mm[Hg] Gerhard Kuns Other [facility] Other 06-07-2022 13:30-0400 Body height 165.1 cm Gerhard Kuns Other [facility] Other 06-07-2022 13:30-0400 Body mass index (BMI) [Ratio] 26.46 kg/m2 Gerhard Kuns Other [facility] Other 06-07-2022 13:30-0400 Body weight 72.12 kg Gerhard Kuns Other [facility] Other 06-07-2022 13:30-0400 Diastolic blood pressure 80 mm[Hg] Gerhard Kuns Other [facility] Other 06-07-2022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
== END 2024-06-25 12:15 | disposition home or self-care (01) ==
LOC: RAD 12:14
PROVIDERS: PCP Family Medicine; Visit Provider Podiatrist Foot & Ankle Surgery
DX: M25.571 Pain in right ankle and joints of right foot (principal)
CPT/HCPCS: 73610

== ENCOUNTER 2024-08-20 14:27 | Outpatient (OUT) | payer OTHER, SELFPAY ==
--- NOTE | 2024-08-20 14:41 | XR_ITS ---
The [address] [address] Patient Name: RAQUEL GOODMAN MRN: [id number] date: 1990 Sex: F Assigned Patient Location: [facility] Current Patient Location: Accession/Order Number: [id number] Exam Date: 08/20/2024 15:00 Report Date: 08/21/2024 07:24 At the request of: ILSA PHILIP Procedure: XR chest 2V EXAMINATION: XR chest 2V HISTORY: Preop exam COMPARISON: No relevant comparison available. TECHNIQUE: PA and lateral FINDINGS: LUNGS: No significant pulmonary parenchymal abnormalities. VASCULATURE: No increased pulmonary vasculature. PLEURA: No pneumothorax, effusion, or pleural thickening. CARDIAC: No cardiomegaly or cardiac silhouette abnormality. MEDIASTINUM: No visible mass or adenopathy. BONES: No fracture or visible bone lesion. OTHER: Negative. XR/XR chest 2V IMPRESSION: No acute cardiopulmonary process Electronically authenticated by: PIEDAD SANDOVAL Date: 08/21/2024 07:24
--- NOTE | 2024-08-20 15:19 | PM.PRESUREVA ---
History of Present Illness History of Present Illness Chief complaint: strain of muscles tendon, peroneal muscle group Narrative: Patient presents for presurgical testing. The patient has a long history of ankle and foot pain on the right. She has had multiple surgeries on her right lower extremity. She states her pain is consistent and is not relieved with rest or meloxicam. She denies numbness, tingling, or weakness. The patient reports she awoke this morning with nasal congestion and has been taking DayQuil. She denies cough, fever, chest pain, difficulty breathing, or any other complaints. Review of Systems ROS Narrative REVIEW OF SYSTEMS: Negative except as stated in HPI, ten or more systems reviewed. Constitutional: No fever, chills, weakness ENT: No sore throat or epistaxis Cardiovascular: No edema, chest pain, palpitations, or activity intolerance Respiratory: No shortness of breath, cough, or wheezing Gastrointestinal: No abdominal pain, constipation, diarrhea, or vomiting Genitourinary: No dysuria or hematuria Neurological: No numbness, tingling, weakness, or headache Psychiatric: No mood changes [facility] Medical History (Updated 08/20/24 @ 15:24 by Debbie Antunez NP) Strain of muscle(s) and tendon(s) of peroneal muscle group at lower leg level, right leg, sequela ?S86.311S - Strain of muscle(s) and tendon(s) of peroneal muscle group at lower leg level, right leg, sequela (ICD-10) Peroneal tendon tear ?S86.319A - Strain of muscle(s) and tendon(s) of peroneal muscle group at lower leg level, unspecified leg, initial encounter (ICD-10) Strain of right peroneal muscle or tendon ?S86.311A - Strain of muscle(s) and tendon(s) of peroneal muscle group at lower leg level, right leg, initial encounter (ICD-10) 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 - Villonodular synovitis (pigmented), unspecified ankle and foot (ICD-10) Seizures ?R56.9 - Unspecified convulsions (ICD-10) Depression ?F32.A - Depression, unspecified (ICD-10) Anxiety ?F41.9 - Anxiety disorder, unspecified (ICD-10) Arthritis ?M19.90 - Unspecified osteoarthritis, unspecified site (ICD-10) Endometriosis ?N80.9 - Endometriosis, unspecified (ICD-10) Peroneal tendinitis, right leg ?M76.71 - Peroneal tendinitis, right leg (ICD-10) Right ankle instability ?M25.371 - Other instability, right ankle (ICD-10) Impingement of right ankle joint ?M25.871 - Other specified joint disorders, right ankle and foot (ICD-10) PONV (postoperative nausea and vomiting) ?R11.2 - Nausea with vomiting, unspecified (ICD-10) ?Z98.890 - Other specified postprocedural states (ICD-10) Hallux rigidus ?M20.20 - Hallux rigidus, unspecified foot (ICD-10) Surgical History (Updated 07/26/23 @ 06:40 by Rosaura Conde) H/O arthroscopy of knee ?Z98.890 - Other specified postprocedural states (ICD-10) Hx of tonsillectomy ?Z90.89 - Acquired absence of other organs (ICD-10) H/O laparoscopy ?Z98.890 - Other specified postprocedural states (ICD-10) History of appendectomy ?Z90.49 - Acquired absence of other specified parts of digestive tract (ICD-10) H/O foot surgery (05/02/21) ?Z98.890 - Other specified postprocedural states (ICD-10) H/O foot surgery (10/21/21) ?Z98.890 - Other specified postprocedural states (ICD-10) History of ankle surgery (07/24/22) ?Z98.890 - Other specified postprocedural states (ICD-10) Family History (Updated 07/11/23 @ 12:15 by Debbie Antunez NP) Other Multiple sclerosis Social History (Updated 08/20/24 @ 14:37 by Debbie Antunez NP) Within the past year, how often did you have a drink containing alcohol: 2-3 times a week Smoking status: Current every day smoker Do you use any of these nicotine containing products: vaping products Non-prescribed substance use: denies use Previous occupational history: MA @ [employer] Highest level of school completed/degree received: some college, no degree Meds Home Medications and Allergies Home Medications ?Medication ?Instructions ?Recorded ?Confirmed ?Type tizanidine 4 mg capsule 4 mg PO BID PRN muscle spasticity 07/12/23 08/20/24 History meloxicam 15 mg tablet 15 mg PO DAILY 08/20/24 08/20/24 History Allergies Allergy/AdvReac Type Severity Reaction Status Date / Time No Known Drug Allergies Allergy Verified 08/20/24 14:35 Exam Narrative Exam Narrative: Constitutional: Awake, alert, comfortable, well-appearing, nontoxic, interactive, vital signs as charted Head: Normocephalic, atraumatic Eyes: Conjunctiva and lids normal to inspection, pupils normal ENT: Tympanic membranes pearly lawrence, nonerythematous, noninjected, naris congested, posterior oropharynx clear, oral mucosa moist Neck: Supple, normal appearance, normal range of motion, no meningeal signs, no lymphadenopathy Respiratory: No respiratory distress, breath sounds clear Cardiovascular: Regular rate and rhythm, strong and regular heart tones Musculoskeletal: Right lateral ankle tenderness with mild swelling, painful range of motion, good capillary refill, sensation intact Skin: No rashes or induration, no lesions, only visible skin inspected Neuro: No neurological deficits, normal sensation Psychiatric: Oriented ?3, normal affect Assessment and Plan Assessment and Plan (1) Strain of muscle(s) and tendon(s) of peroneal muscle group at lower leg level, right leg, sequela: (2) Right ankle instability: Plan Repair of right peroneal tendons with stress examination under intraoperative fluoroscopy and possible lateral ankle stabilization scheduled with Dr. Robert September 01, 2024.
[2024-08-20 15:24] LABS: Internal Control Within Normal Limits; SARS-CoV-2 Ag NEGATIVE (NEGATIVE)
== END 2024-08-20 14:28 | disposition home or self-care (01) ==
LOC: PST 14:28
PROVIDERS: PCP Family Medicine; Visit Provider Podiatrist Foot & Ankle Surgery
DX: Z01.810 Encounter for preprocedural cardiovascular examination (principal); Z01.818 Encounter for other preprocedural examination; Z20.822 Contact with and (suspected) exposure to COVID-19; S86.311A Strain of muscle(s) and tendon(s) of peroneal muscle group at lower leg level, right leg, initial encounter; M25.371 Other instability, right ankle
CPT/HCPCS: 71046; 87811; G0463

== ENCOUNTER 2024-09-01 06:15 | Day surgery (SDC) | payer OTHER, SELFPAY ==
[2024-09-01] VITALS (11 sets, daily range): BP systolic 101–144; BP diastolic 67–99; PULSE 64–103; TEMP 36.1–36.6; O2SAT 93–100; BMI 25.7
--- NOTE | 2024-09-01 | FL_ITS ---
[address] [address] Patient Name: RAQUEL GOODMAN MRN: [id number] date: 1990 Sex: F [facility] Current Patient Location: [facility] Accession/Order Number: [id number] Exam Date: 09/01/2024 08:20 Report Date: 09/09/2024 08:42 At the request of: ILSA PHILIP Procedure: FL fluoroscopy <1hr NON-READ EXAM: FL fluoroscopy <1hr NON-READ HISTORY: TECHNIQUE: FINDINGS: Please see Operative Report. Electronically authenticated by: RADIOLOGIST NO Date: 09/09/2024 08:42
--- OUTSIDE RECORDS SUMMARY | 2024-09-01 06:19 | XMS_ITS | CCD ---
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 11-30-2023 Monocytes/100 WBC (Bld) 6.4 % . F [facility] Neutrophils Auto (Bld) [#/Vo l]Ordered By: Nancy Angeles on 11-30-2023 Neutrophils (Bld) [#/Vol] 7.0 10*3/uL 1.8-7.7 [facility] Neutrophils/100 WBC Auto (Bl d)Ordered By: Nancy Angeels on 11-30-2023 Neutrophils/100 WBC (Bld) 66.5 % . [facility] No Panel InformationOrdered By: Nancy Angeles on 11-30-2023 Estimated GFR (CKD-EPI) > 60.0 mL/Min [facility] Creatinine Clearance (Chem N/A [facility] Nucleated erythrocytes [Pres ence] in Blood by Automated countOrdered By: Nancy Angeles on 11-30-2023 Nucleated RBC Auto Ql (Bld) 0.1 /100{WBC} 0-0.5 [facility] Platelet mean volume Auto (B ld) [Entitic vol]Ordered By: Nancy Angeles on 11-30-2023 Platelet mean volume (Bld) [Entitic vol] 10.0 fL 6.3-10.7 [facility] Platelets Auto (Bld) [#/Vol] Ordered By: Nancy Angeles on 11-30-2023 Platelets (Bld) [#/Vol] 211 10*3/uL 150-450 [facility] Potassium [Moles/volume] in Serum or PlasmaOrdered By: Nancy Angeles on 11-30-2023 Potassium [Moles/Vol] 4.1 mmol/L 3.5-5.1 [facility] Protein [Mass/volume] in Ser um or PlasmaOrdered By: Nancy Angeles on 11-30-2023 Protein [Mass/Vol] 6.3 g/dL 6.4-8.9 [facility] RBC Auto (Bld) [#/Vol]Ordere d By: Nancy Angeles on 11-30-2023 RBC (Bld) [#/Vol] 4.40 10*6/uL 3.60-5.00 [facility] Serum or plasma albumin/glob ulin mass ratioOrdered By: Nancy Angeles on 11-30-2023 Albumin/Globulin [Mass ratio] 2.2 {ratio} [facility] Serum or plasma anion gap de terminationOrdered By: Nancy Angeles on 11-30-2023 Anion gap [Moles/Vol] 7.0 mmol/L 6.0-15.0 [facility] Serum or plasma high density lipoprotein (HDL) cholesterol measurementOrdered By: Nancy Angeles on 11-30-2023 Cholesterol in HDL [Mass/Vol] 41 mg/dL 23-92 [facility] Comment on above: HDL CHOL ATP-III CLA SSIFICATION Cardiovascular RiskHDL > or equal to 60 mg/dL LOWHDL < 40 mg/dL HIGH Serum or plasma total choles terol/high density lipoprotein (HDL) cholesterol mass ratOrdered By: Nancy Angeles on 11-30-2023 Cholesterol.total/Choles terol in HDL [Mass ratio] 3.9 {ratio} <5.0 [facility] Sodium [Moles/volume] in Ser um or PlasmaOrdered By: Nancy Angeles on 11-30-2023 Sodium [Moles/Vol] 139 mmol/L 136-145 [facility] Thyroid Stimulating Hormoneo n 11-30-2023 TSH Qn 2.73 m[IU]/L Normal 0.45-5.33 [facility] Comment on above: Result Comment: PERF ORMED BY: [facility] [address] [place] [address] PATHOLOGIST SCIENTIFIC DIRECTOR AMADA GUTHRIE M.D. Performed By: #### C MP, LIPID, TSH3, CBC #### [place] [id number] [facility] Thyrotropin [Units/volume] i n Serum or PlasmaOrdered By: Nancy Angeles on 11-30-2023 TSH Qn 2.73 m[IU]/L 0.45-5.33 [facility] Triglyceride [Mass/volume] i n Serum or PlasmaOrdered By: Nancy Angeles on 11-30-2023 Triglyceride [Mass/Vol] 66 mg/dL 0-149 F [facility] Comment on above: TRIG ATP III CLASSIF ICATIONTRIG less than 150 mg/dL NormalTRIG 150-199 mg/dL Borderline highTRIG 200-500 mg/dL High TRIG greater than 500 mg/dL Very highStandard traceable to the Center for Disease Conrtrol and Prevention (CDC) test method. Urea nitrogen [Mass/volume] in Serum or PlasmaOrdered By: Nancy Angeles on 11-30-2023 Urea nitrogen [Mass/Vol] 7 mg/dL 7-25 [facility] WBC Auto (Bld) [#/Vol]Ordere d By: Nancy Angeles on 11-30-2023 WBC (Bld) [#/Vol] 10.5 10*3/uL 3.8-11.6 [facility] MR ankle RT wo conon 023 MR ankle RT wo con [facility] [place] [address] [place], [place] [id number] MRI Report Signed Patient: Arianne Bocanegra MR#: [id number] : 1990 Acct:[id number] Age/Sex: 32 / F ADM Date: 02/28/23 Loc: MR Room: Type: [facility] Attending Dr: Ilsa Robert DPM, MS Copies to: Ilsa Robert DPM, MS Ordering Provider: Ilsa Robert DPM, MS Date of Service: 02/28/23 MR/MR ankle RT wo con: [id number] MR ankle RT wo con 02/28/2023 6:00 [...] Oscar Schmidt M.D.03/01/2023 8:17 AM Dictation Location: [place] [address] Transcribed By: [facility] 03/01/23816 Dictated By: Oscar Schmidt II, MD 03/01/23805 Signed By: 03/01/23816 Normal [facility] Choriogonadotropin.beta subu nit [Units/volume] in Serum or PlasmaOrdered By: Bladimir Florian on 12-15-2022 HCG.beta subunit Qn 0.64 m[IU]/mL [facility] Comment on above: Approximate Approxim ate hCG Gestational Age Range (mIU/ml) (weeks)0.2-1 5-50 1-2 50-500 2-3 100-5,000 3-4 500-10,000 4-5 1,000-50,000 5-6 10,000-100,000 6-8 15,000-200,000 8-12 10,000-100,000 XR FOOT RT 2Von 07-25-2022 XR FOOT RT 2V EXAM: XR FOOT RT 2V HISTORY: Pain COMPARISON: None. TECHNIQUE: 21 seconds of fluoroscopy. 6 images. FINDINGS: 5 fluoroscopic images of the ankle and forefoot. No definite ankle instability with stress IMPRESSION: Fluoroscopic images as described Electronically authenticated by: PIEDAD SANDOVAL Date: 2022-07-25 07:[address] [facility] POINT OF CARE GLUCOSEon 07-11 Glucose [Mass/Vol] 103 mg/dL Normal 74-106 [facility] Comment on above: Performed By: #### P OCGLUC #### [facility] [address] [place] [address] [address] Neli Clarke Glucose [Mass/Vol] 102 mg/dL Normal 74-106 [facility] Comment on above: Performed By: #### P OCGLUC #### [facility] [address] [place] [address] [address] Neli Clarke PREG HCG QUALon 07-24-2022 , QUAL Negative Normal NEGATIVE [facility] Comment on above: Performed By: #### P REG #### [facility] [address] [place] [address] Neli Clarke Covid-19 PCR (CVDTB)on 07-11 SARS-CoV-2 (COVID-19) RNA PERLA+probe Ql (Unsp spec) Not detected Normal NOT DETECTED [facility] Comment on above: Result Comment: This test is not yet approved or cleared by the [place] FDA. When there are no FDA-approved or cleared tests available, and other criteria are met, FDA can make tests available under an emergency access mechanism called an Emergency Use Authorization (EUA). The EUA for this test is supported by the [place] of Health and Human Service's (HHS's) declaration [...] consistent with SARS-CoV-2. Performed By: #### [facility] #### [facility] [address] [place] [address] 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 Problem List As Of Date 03/29/2020 Noted Resolved Knee pain [M25.569] 10/06/2011 Sprain, knee [S83.90XA] 04/30/2015 Synovitis of knee [M65.9] 04/30/2015 Encounter Status:Closed by LIOR HARDIN JR, MD on 03/29/20 Normal [facility] PROGRESSon 03-29-2020 PROGRESS HNO ID: [id number] Author: Lior Hardin Jr. Service: ? Author [...] PROCEDURE: Procedures Lior Hardin Jr, MD Normal [facility] PROGRESS HNO ID: [id number] Author: Ally Roman (Rt) Stamprahul Service: ? Author Type: Computer Network Engineer Type: Progress Notes Filed: 03/29/2020 10:29 AM Note Text: Radiology Service Progress Note PATIENT NAME: Arianne Oconnor DATE OF SERVICE: March 29, 2020 TIME: [...] RT March 29, 2020 10:26 AM Normal [facility] XR KNEE 4V AP/PA BOTH+LAT/ME R LTon [...] joint effusion. IMPRESSION: Unremarkable exam left knee. Joint Finisher: TIARRA Transcribe Date/Time: Mar 29 2020 2:21P Dictated by : LISA CANALES MD This examination was interpreted and the report reviewed and electronically signed by: LISA CANALES MD on Mar 29 2020 2:21PM EST [id number] Normal [facility] Vital Signs Date Time Vital Sign Value Performing Clinician Facility 07-30-2024 15:38-0500 Body mass index (BMI) [Ratio] 26.46 kg/m2 Bladimir Florian DO Work Phone: [facility] 07-30-2024 15:38-0500 Body weight 72.12 kg Bladimir Florian DO Work Phone: [facility] 07-30-2024 15:38-0500 Diastolic blood pressure 82 mm[Hg] Bladimir Florian DO Work Phone: [facility] 07-30-2024 15:38-0500 Systolic blood pressure 118 mm[Hg] Bladimir Visci DO Work Phone: [facility] 12-04-2023 14:03-0400 Body height 162.56 cm DO Nancy Kuns Work Phone: [facility] 12-04-2023 14:03-0400 Body mass index (BMI) [Ratio] 27.3 kg/m2 DO Nancy Kuns Work Phone: [facility] 12-04-2023 14:03-0400 Body weight 72.12 kg DO Nancy Kuns Work Phone: [facility] 12-04-2023 14:03-0400 Diastolic blood pressure 75 mm[Hg] DO Nancy Kuns Work Phone: [facility] 12-04-2023 14:03-0400 Heart rate 84 /min DO Nancy Kuns Work Phone: [facility] 12-04-2023 14:03-0400 Respiratory rate 18 /min DO Nancy Kuns Work Phone: [facility] 12-04-2023 14:03-0400 SaO2% (BldA) [Mass fraction] 96 % DO Nancy Kuns Work Phone: [facility] 12-04-2023 14:03-0400 Systolic blood pressure 120 mm[Hg] DO Nancy Kuns Work Phone: [facility] 10-04-2022 16:00-0500 Body height 165.1 cm Nancy Bonfaires Other [facility] [employer] Other 10-04-2022 16:00-0500 Body mass index (BMI) [Ratio] 27.12 kg/m2 Nancy Kuns Other [facility] [employer] Other 10-04-2022 16:00-0500 Body weight 73.94 kg Nancy Kuns Other [employer] Other 10-04-2022 16:00-0500 Diastolic blood pressure 86 mm[Hg] Nancy Kuns Other [employer] Other 10-04-2022 16:00-0500 Respiratory rate 16 /min Nancy Kuns Other [employer] Other 10-04-2022 16:00-0500 SaO2% (BldA) [Mass fraction] 98 % Nancy Kuns Other [employer] Other 10-04-2022 16:00-0500 Systolic blood pressure 126 mm[Hg] Nancy Kuns Other [employer] Other 07-06-2022 15:00-0400 Body height 165.1 cm Nancy Kuns Other [employer] Other 07-06-2022 15:00-0400 Body mass index (BMI) [Ratio] 26.46 kg/m2 Nancy Kuns Other [employer] Other 07-06-2022 15:00-0400 Body weight 72.12 kg Nancy Kuns Other [employer] Other 07-06-2022 15:00-0400 Diastolic blood pressure 70 mm[Hg] Nancy Kuns Other [employer] Other 07-06-2022 15:00-0400 Respiratory rate 18 /min Nancy Kuns Other [employer] Other 07-06-2022 15:00-0400 SaO2% (BldA) [Mass fraction] 99 % Nancy Kuns Other [employer] Other 07-06-2022 15:00-0400 Systolic blood pressure 112 mm[Hg] Nancy Kuns Other [employer] Other 06-07-2022 13:30-0400 Body height 165.1 cm Nancy Kuns Other [employer] Other 06-07-2022 13:30-0400 Body mass index (BMI) [Ratio] 26.46 kg/m2 Nancy Kuns Other [employer] Other 06-07-2022 13:30-0400 Body weight 72.12 kg Nancy Kuns Other [employer] Other 06-07-2022 13:30-0400 Diastolic blood pressure 80 mm[Hg] Nancy Kuns Other [employer] Other 06-07-2022 13:30-0400 Respiratory rate 18 /min Nancy Kuns Other [employer] Other 06-07-2022 13:30-0400 SaO2% (BldA) [Mass fraction] 99 % Nancy Kuns Other [employer] Other 06-07-2022 13:30-0400 Systolic blood pressure 130 mm[Hg] Nancy Kuns Other [employer] Other Encounters Encounter Date Encounter Type Care Provider Facility Start: 07-30-2024 End: 07-30-2024 Patient encounter status Bladimir Lundy Anival DO Work Phone: [facility] Start: 07-30-2024 End: 07-30-2024 Periodic preventive med est patient 18-39 yrs Bladimir A Visci DO Work Phone: [facility] Comment on above: Encounter for gyneco logical examination (general) (routine) without abnormal findings (Primary Dx); Endometriosis; Dyspareunia, female; Screening for malignant neoplasm of cervix; Screening for HPV (human papillomavirus) Start: 07-30-2024 End: 07-30-2024 ambulatory BLADIMIR A VISCI Not Available Start: 07-21-2024 ambulatory ILSA ROBERT Faci lity:[facility] Start: 07-07-2024 End: 07-07-2024 ambulatory ILSA ROBERT Facility:[facility] Start: 07-07-2024 End: 07-07-2024 Patient encounter procedure ILSA ROBERT [facility] Start: 06-05-2024 ambulatory Donis Tapia y:[facility] Start: 02-24-2024 End: 02-24-2024 Emergency department patient visit [facility] Start: 01-03-2024 End: 01-03-2024 ambulatory Nancy Angeles Facility:[facility] Start: 01-03-2024 End: 01-03-2024 ambulatory DO Nancy Nicks Work Phone: [facility] Work Phone: Start: 01-03-2024 End: 01-03-2024 Patient encounter procedure DO Nancy Nicks Work Phone: [facility] Work Phone: Start: 12-20-2023 End: 12-20-2023 ambulatory BLADIMIR A VISCI Not Available Start: 12-04-2023 End: 12-04-2023 Encounter for general adult medical examination without abnormal findings DO Nancy Angeles Work Phone: [facility] Start: 12-04-2023 End: 12-04-2023 Patient encounter procedure DO Nancy Angeles Work Phone: [facility] [place] Work Phone: Start: 11-30-2023 End: 11-30-2023 ambulatory Nancy Kuns Facility:[facility] Start: 11-30-2023 Encounter for genera l adult medical examination without abnormal findings Nancymarya Angeles [facility] Start: 11-30-2023 End: 11-30-2023 ambulatory DO Nancy Kuns Work Phone: [facility] Work Phone: Start: 11-30-2023 End: 11-30-2023 Patient encounter procedure DO Nancy Kuns Work Phone: [facility] [place] Work Phone: Start: 11-05-2023 End: 11-05-2023 ambulatory RADHA POCOS Not Available Start: 02-28-2023 End: 02-28-2023 ambulatory Ilsa Robert Facility:[facility] Start: 02-28-2023 End: 02-28-2023 ambulatory DO Nancy Kuns Work Phone: [facility] Work Phone: Start: 02-28-2023 End: 02-28-2023 Patient encounter procedure DO Nancy Kuns Work Phone: [facility] [place] Work Phone: Start: 02-01-2023 ambulatory JAYLA ENCARNACION Facilit y:[facility] Start: 12-15-2022 End: 12-15-2022 ambulatory DO Nancy Kuns Work Phone: [facility] Work Phone: Start: 12-15-2022 End: 12-15-2022 Patient encounter procedure DO Nancy Kuns Work Phone: [facility] [place] Work Phone: Start: 10-04-2022 End: 10-04-2022 ambulatory Nancy Kuns Other [employer] Other Start: 10-04-2022 Office outpatient vi sit 15 minutes Nancy Kuns [facility] Start: 07-24-2022 End: 07-24-2022 ambulatory ILSA ROBERT Facility:[facility] Start: 07-24-2022 Encounter for preprocedural laboratory examination ILSA ROBERT [facility] Start: 07-20-2022 End: 07-21-2022 ambulatory ILSA ROBERT Facility:[facility] Start: 07-20-2022 End: 07-21-2022 Encounter for preprocedural laboratory examination ILSA ROBERT Facility:[facility] Start: 07-14-2022 Encounter for other preprocedural examination ILSA ROBERT [facility] Start: 07-12-2022 End: 07-13-2022 ambulatory ILSA ROBERT Facility:[facility] Start: 07-12-2022 End: 07-13-2022 Encounter for [facility]ced[facility] Start: 07-06-2022 End: 07-06-2022 ambulatory Nancy Kuns Other [employer] Other Start: 07-06-2022 Office outpatient vi sit 15 minutes Nancy Kuns [facility] Start: 06-12-2022 End: 06-12-2022 ambulatory DO Nancy Kuns Work Phone: [facility] Work Phone: Start: 06-12-2022 End: 06-12-2022 Patient encounter procedure DO Nancy Kuns Work Phone: [facility] [address] Start: 06-07-2022 End: 06-07-2022 ambulatory Nancy Kuns Other [employer] Other Start: 06-07-2022 Office outpatient vi sit 25 minutes Nancy Kuns [facility] Start: 05-31-2022 ambulatory ILSA ROBERT Faci lity:[facility] Start: 05-30-2022 End: 05-30-2022 Patient encounter procedure DO Nancy Kuns Work Phone: [facility] Start: 03-22-2022 End: 03-23-2022 ambulatory ILSA ZUÑIGAEVE Facility: Start: 05-02-2021 ambulatory NONE LISTED REQUEST Facility:[facility] Start: 04-28-2021 ambulatory ILSA ROBERT Facildanish ty:[facility] Procedures Date Procedure Procedure Detail Performing Clinician Start: 01-03-2024 Plain chest X-ray DO Br ett Kuns Work Phone: Start: 01-03-2024 Radiography of thora cic spine DO Nancy Kuns Work Phone: Start: 01-03-2024 X-ray of lumbar spin e, six views including bending views DO Nancy Kuns Work Phone: Start: 06-12-2022 MRI of right ankle DO B rett Kuns Work Phone: Start: 05-30-2022 X-ray of right foot DO Nancy Kuns Work Phone: Start: 11-05-2020 Microscopic observat ion [Identifier] in Cervix by Cyto stain Bladimir Florian DO Work Phone: Start: 12-30-2015 Left knee arthroscopy P SHANITARAHUL ROBERT Arthroscopy of knee [facility] Comment on above: left - 2008 x2 [facility] with fulguration of lesion [facility] Plan of Treatment Date Care Activity Detail Author Start: 09-24-2024 End: 09-24-2024 Patient encounter procedure 09/24/2024 2:30 PM EST Office Visit [facility] [address] [place] [address] Bladimir Florian, DO [address] [place] [address] [facility] Start: 08-28-2024 End: 08-28-2024 Patient encounter procedure [facility] Start: 07-30-2024 End: 07-30-2025 IGP, APT HPV,RFX 16/18,45 IGP, APT HPV,RFX 16/18,45 Lab Routine Screening for malignant neoplasm of cervix Screening for HPV (human papillomavirus) Expected: 07/30/2024 (Approximate), Expires: 07/30/2025 [facility] Work Phone: Comment on above: Expected: 07/30/2024 (Approximate), Expires: 07/30/2025 Start: 11-05-2023 Screening for malignant neoplasm of cervix [facility] Start: 02-28-2023 MR Ankle - right WO contrast [facility] Start: 02-28-2023 MRI of right ankle MR ankle RT wo co n [facility] Start: 2020 Screening for malignant neoplasm of cervix HPV/Cotest [facility] Immunizations Immunization Date Immunization Notes Care Provider Fa cility 06-05-2024 influenza, seasonal, injectable; Translations: [Fluzone TIV PF ] [facility] Comment on above: Reason for Medicatio n: Prophylaxis 08-01-2021 SARS-CoV-2 (COVID-19) mRNA B[facility]162b2 [facility] Comment on above: Reason for Medicatio n: Prophylaxis 07-25-2021 influenza virus vaccine, unspecified formulation [facility] Comment on above: Reason for Medicatio n: Prophylaxis NEGATED: Highlighted row has not occurred! 9 influenza, seasonal, injectable Patient Objection Nancy Angeles Other [employer] Other Payers Date Payer Category Payer Unknown 2023 Private Health Insurance [employer] [id number] 2023 Self-pay [id number] 1990 Unknown [id number] 2.16.840.1.793825.3.579.2. 593 1990 Unknown [id number] 2.16.840.1.978330.3.579.2. 593 1990 Unknown [id number] 2.16.840.1.381929.3.579.2. 593 1990 Unknown [id number] 2.16.840.1.581136.3.579.2. 593 1990 Unknown [id number] 2.16.840.1.156987.3.579.2. 593 1990 Unknown [id number] 2.16.840.1.719865.3.579.2. 593 1990 Unknown [id number] 2.16.840.1.200667.3.579.2. 593 1990 Unknown [id number] 2.16.840.1.442026.3.579.2. 593 1990 Unknown [id number] 2.16.840.1.241742.3.579.2. 1259 1990 Unknown [id number] 2.16.840.1.569377.3.579.2. 1259 1990 Unknown [id number] 2.16.840.1.897085.3.579.2. 1259 1990 Unknown [id number] 2.16.840.1.719347.3.579.2. 1259 1990 Unknown [id number] 2.16.840.1.069245.3.579.2. 727 1990 Unknown [id number] 2.16.840.1.905981.3.579.2. 727 1990 Unknown [id number] 2.16.840.1.452058.3.579.2. 727 1959 Unknown [id number] 1959 Unknown [id number] Unknown Self Pay [id number] Unknown [id number] Unknown Regular Auto/Liability 18-45 [id number] [id number] Unknown COVID19 [employer]SA Uni nsured Fund [id number] Unknown [id number] 2.16.840.1.043313.3.579.2. 531 Unknown [id number] 2.16.840.1.487638.3.579.2. 531 Unknown [id number] 2.16.840.1.134719.3.579.2. 531 Unknown [id number] Social History Date Type Detail Facility Tobacco smoking stat [facility] Unknown if ever smoked [facility] [facility] Start: 1990 Sex Assigned At Female F [facility] Start: 09-20-2018 End: 10-12-2018 Tobacco smoking status NHIS Smoker (finding) [facility] Start: 12-20-2023 End: 07-30-2024 Sex Assigned At [facility] Start: 12-09-2015 End: 12-20-2023 Tobacco smoking status Smokes tobacco daily (finding) [facility] Comment on above: chantix in past History of tobacco use Cigarette Smoker N [facility] Start: 12-20-2023 End: 07-30-2024 Cigarettes smoked current (pack per day) - Reported 0.5 [facility] Start: 12-20-2023 Tobacco use and exposure Smokeless tobacco non-user [facility] Start: 07-30-2024 Alcoholic beverage intake Current drinker of alcohol (finding) [facility] How often to you hav e a drink containing alcohol? 2-3 time sa week [facility] How many standard drinks containing alcohol do you have on a typical day? 3 or 4 [facility] How often do you hav e 6 or more drinks on 1 occasion? Weekly [facility] Start: 11-09-2023 Tobacco Comment Thinks about quittin g [facility] Start: 11-05-2023 Alcohol Comment Weekly if that [facility] Start: 10-29-2023 Gender identity Identifies as female gender (finding) [facility] Goals Date Patient Goal Desired Activity /State Clinical Notes 01-11-2013 to 07-30-2024 Gabrielle Galvez LPN - 07/30/2024 3:00 PM EST Note Date & Type Note Facility 07-30-2024 History of Presen t illness Narrative Images from the original note were not included. Bladimir Florian, Obstetrics and Gynecology Arianne Bocanegra 1990 07/30/24 [id number] Yearly Wellness Exam Chief Complaint Patient presents with Gynecologic Exam Pt presents for pap test. No problems or concerns with breast/bowel/bladder. LMP- 07-22-24. Regular cycles/severe cramping/ heavy bleeding first few days. Not on BC. Visit Vitals BP 118/82 Wt 159 lb BMI 26.46 kg/m OB Status Having periods Smoking Status Every Day BSA 1.82 m History of Present Illness Current Outpatient Medications Medication Sig Dispense Refill buPROPion XL (Wellbutrin XL) 300 MG 24 hr tablet Take 1 tablet (300 mg) by mouth Daily Do not crush, chew, or split. 90 tablet 3 meloxicam (Mobic) 15 MG tablet 1 (one) time each day at the same time traMADol (Ultram) 50 MG tablet 1 or 2 Orally Q 6 hours PRN for 30 days Zanaflex 4 MG tablet 1 tablet as needed Orally Every 8 hrs for muscle spasms for 14 days No current facility-administered medications for this visit. No Known Allergies Past Medical History: Diagnosis Date Appendicitis 2013 Arthritis 2016 Chronic pelvic pain in female Endometriosis Infertility, female Seizures (CMS/HCC) Child Past Surgical History: Procedure Laterality Date APPENDECTOMY ENDOMETRIAL ABLATION FOOT SURGERY Right 05/02/2021 KNEE SURGERY Left knee scope x3 with Shine PELVIC LAPAROSCOPY 2012 operative lap/Appendectomy/MAYELA-Chronic pelvic pain/adhesions/endometriosis/appendic itis ROOT CANAL TOE SURGERY 07/26/23 TONSILLECTOMY 1992 OB History Para Term AB Living 0 0 0 0 0 0 SAB IAB Ectopic Multiple Live Births 0 0 0 0 0 Obstetric Comments Pap 11/05/20- Neg, HPV Neg ; 08/25/15- ASCUS (Neg HPV); 05/07/14- LGSIL; 11/20/13- LGSIL; 12/26/12- ASCUS; 01/18/12- LGSIL ROS General: Denies fevers/chills Eyes: Denies vision changes ENT: Denies neck stiffness, neck mass Endocrine: Denies polydipsia and polyuria Respiratory: Denies shortness of breath Cardiovascular: Denies chest pain and palpitations Gastrointestinal: Denies changes in bowel habits, blood in stool, constipation and diarrhea. Hematology: Denies easy bruising. Women Only: Denies breast masses, skin changes, nipple discharge, abnormal bleeding, pelvic pain and dyspareunia Genitourinary: Denies dysuria, pelvic pain and nocturia Skin: Denies rashes/lesions Neurologic: Denies headaches, dizziness, syncope Psychiatric: Denies hallucinations, suicidal ideas EXAM GENERAL EXAMINATION: Alert, oriented, well developed, well nourished. HEAD: Normocephalic, atraumatic. EYES: ELSIE, sclera anicteric. EARS: No obvious hearing deficit. NECK/THYROID: Neck supple no cervical lymphadenopathy no thyromegaly. LYMPH NODES: No axillary, supraclavicular or inguinal adenopathy. SKIN: Warm and dry. No rashes HEART: Regular rate and rhythm. No murmur LUNGS: Clear to auscultation bilaterally. CHEST: Axillary nodes grossly normal. BREASTS: No dominant masses palpable bilaterally, no skin changes, nipple discharge, supra-clavicular or axillary adenopathy ABDOMEN: Soft, nontender, nondistended, no hernia or masses palpable. BACK: No obvious scoliosis/kyphosis. FEMALE GENITOURINARY: Graduating Machine Operator in room-EFG without sores/lesions, normal vaginal mucosa-no discharge, cervix without lesions, uterus AV, NSSC, no adnexal masses, cul-de-sac negative. EXTREMITIES No edema. NEUROLOGIC: Alert and oriented. PSYCH: Cooperative with exam. ICD-10-CM 1. Encounter for gynecological examination (general) (routine) without abnormal findings Z01.419 2. Endometriosis N80.9 3. Dyspareunia, female N94.10 4. Screening for malignant neoplasm of cervix Z12.4 IGP, APT HPV,RFX 16/18,45 IGP, APT HPV,RFX 16/18,45 5. Screening for HPV (human papillomavirus) Z11.51 IGP, APT HPV,RFX 16/18,45 IGP, APT HPV,RFX 16/18,45 Advised pt to perform monthly self breast exams. Encouraged calcium and Vitamin D intake. She continues with bothersome pelvic pain- coming any time throughout the month and with bowel movements. She was scheduled for hysterectomy in Aug but she unfortunately needs foot surgery first. She will likely reschedule hysterectomy next year, will call office when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
[2024-09-01 06:25] LABS: Basophils Percent Auto 0.5 % (0.2-2.0); Eosinophils Absolute Auto 0.1 10^3/uL (0.0-0.7); Eosinophils Percent Auto 1.7 % (0.9-7.0); Hematocrit 37.1 % (36.0-48.0); Hemoglobin 12.4 g/dL (12.0-16.0); Immature Granulocytes Abs Auto 0.03 10^3/uL (0.00-0.03); Immature Granulocytes Pct Auto 0.4 % (0.0-0.5); Lymphocytes Absolute Auto 2.8 10^3/uL (1.2-3.8); Lymphocytes Percent Auto 36.5 % (20.5-60.0); Mean Corpuscular HGB Conc 33.4 g/dL (29.9-35.2); Mean Corpuscular Hemoglobin 30.8 pg (26.7-34.0); Mean Corpuscular Volume 92.3 fL (81.0-99.0); Mean Platelet Volume 9.9 fL (9.5-13.5); Monocytes Absolute Auto 0.7 10^3/uL (0.3-0.8); Monocytes Percent Auto 9.5 % (1.7-12.0); Neutrophils Percent Auto 51.4 % (43.0-75.0); Platelet Count 249 10^3/uL (150-450); Red Blood Count 4.02 10^6/uL (4.20-5.40); White Blood Count 7.8 10^3/uL (4.0-11.0)
[2024-09-01 06:41] LABS: HCG Qualitative NEGATIVE (NEGATIVE); Internal Control Within Normal Limits
[2024-09-01 06:53] LABS: Glucometer 92 mg/dL (74-106)
[2024-09-01] MEDS: LACTATED RINGER'S SOLUTION 1,000 ML 50 ML IV (07:09)
[2024-09-01] MEDS: SCOPOLAMINE 1 MG/3 DAYS TRANSDERM PATCH 1 PATCH TD (07:14)
[2024-09-01] MEDS: CEFAZOLIN SODIUM 2 GM/50 ML D5W PREMIX IV (07:47)
--- NOTE | 2024-09-01 08:00 | PM.ORONB ---
Brief Operative Note Date of procedure: 09/01/24 Pre-op diagnosis general: Right ankle impingement, peroneal tendon tear sequela, possible lateral ankle instability Post-op diagnosis: other (Right ankle impingement, peroneal tendon tear sequela) Procedure: Procedure performed: Right ankle arthroscopy, peroneal tendon transfer with allogenic graft, stress exam under intraoperative fluoroscopy, application of short leg splint Indications for procedure: Patient is a 34-year-old female well-known to my practice who is undergone multiple surgeries under my care including lateral ankle stabilization and peroneal tendon repair performed on 07/24/2022 followed by revision of her peroneal tendons which included peroneal tendon transfer on 07/26/2023. At recent appointment she was complaining of recurrent pain and cramping over her lateral ankle and calf as well as pain and clicking noted in the anterior ankle with range of motion. An MRI was obtained which demonstrated postsurgical changes to the ATFL and longitudinal tear and the brevis at the level of the distal fibula. She was treated with physical therapy, bracing, NSAIDs, shoe and activity modification however her pain and function only worsened. Due to her failure to respond to nonsurgical care she wished to undergo surgical revision and I outlined the potential pros and cons and risks and benefits of additional surgical intervention. Intraoperative findings: Stress examination of bilateral ankles noted stability in all planes. Arthroscopy revealed significant acute and chronic synovitis and soft tissue impingement with Rochester's lesion. No osteochondral defect was identified. Peroneal brevis with longitudinal tear noted from the fibular groove extending 3 cm distal. Longus was thickened and scarred. Surrounding synovitis noted. Fibular groove was of adequate depth. Procedure in detail: Patient was identified in preop holding by myself which time correct side and site were marked and consent was obtained. Regional anesthesia was performed by the anesthesia team and patient was brought to the operating theater placed on table supine position with a thigh tourniquet. General anesthesia was administered. Bilateral ankles were then stressed under live fluoroscopy and the ankle were noted to be stable in all planes including anterior drawer, varus and valgus as well as syndesmotic. The right lower extremity was prepped and draped in usual sterile fashion and formal timeout was performed. The operative extremity was exsanguinated and the tourniquet was inflated. A 15 blade was used to create anterior medial ankle portal followed by use of hemostat and trochar then the arthroscopic camera was inserted. Anterior lateral portal was similarly created in standard safe location after identifying intermediate dorsal cutaneous nerve. A significant amount of acute and chronic synovitic tissue was removed using a 3.5 mm aggressive shaver which also included a Rochester's lesion noted over the anterior lateral aspect of the ankle.. All impingement tissue was likewise excised. No cartilage defect was noted. Arthroscopic instrumention was then removed. The portals were then closed with nylon suture. Incision was then placed over the peroneal tendons from the distal aspect of the fibula and to the level of the sinus tarsi. Combination of sharp and blunt dissection gained access to the peroneal tendon sheath and superior peroneal retinaculum which was incised. Significant amount of synovitis surrounding the tendons was excised. The longus was thickened and scarred but intact. The longus was sharply debrided of all scar and nonviable tendon tissue. Longitudinal split tear was noted starting from the fibular groove and extending approximately 3 cm. The tear was excised sharply and passed the back table to be sent as specimen. Surgical site was irrigated with copious saline then the tendons were sewn together with absorbable suture incorporating an 8 cm Artelon tendon strip which was placed on the anterior surface of the brevis. The fibular groove was inspected and noted to be adequate depth. The tendons were relocated and the ankle was placed to range of motion. No subluxation or dislocation of the tendons was noted. Surgical site was irrigated with copious saline. The retinaculum was repaired with a pants over vest suture technique using observable suture and the tendon sheath was reapproximated. The incision was then closed in layers and the tourniquet was dropped with noting a prompt hyperemic response. Dry sterile dressing and a multilayer modified Henson posterior splint was applied. Patient tolerated the procedure and anesthesia well was transported to the recovery room with vital signs stable and brisk capillary refill to the right toes. Postoperative plan: Discharge home under mother's care Nonweightbearing right ankle Keep splint clean dry and intact Elevate operative ankle above level of heart Prescriptions were sent to her pharmacy using my office EMR Follow-up in 1 to 2 weeks and likely will be placed into a cast at that time. Implants: 8cm Artelon allogenic tendon graft Anesthesia: regional and General-LMA Surgeon: Marcellus Robert Estimated blood loss (mL): 10 Tourniquet time (min): 70 Pathology: other (peroneal tendon) Condition: stable Disposition: PACU
[2024-09-01] MEDS: BETAMETHASONE ACE/BETAMETHASONE SOD PHOS 30 MG/5 ML 6 MG INJ (09:23)
[2024-09-01 10:05] LABS: Glucometer 111 mg/dL (74-106)
[2024-09-01] MEDS: KETOROLAC TROMETHAMINE 30 MG/ML VIAL IVP (10:07)
--- NOTE | 2024-09-01 10:22 | PC.NURSE ---
Medicated as ordered with Toradol IV
[2024-09-01] MEDS: ONDANSETRON 4 MG RAPDIS TABLET SL (11:09)
--- NOTE | 2024-09-01 11:15 | PC.NURSE ---
Up to bathroom and voids clear yellow without difficulty; maintains non-weight bearing
--- NOTE | 2024-09-01 11:17 | PC.NURSE ---
Retching; no emesis; medicated with oral Zofran as ordered
== END 2024-09-01 11:35 | disposition home or self-care (01) ==
PROVIDERS: PCP Family Medicine; Visit Provider Podiatrist Foot & Ankle Surgery
PROC: (CPT 1464; principal; 2024-09-01 07:30)
DX: M25.871 Other specified joint disorders, right ankle and foot (principal); S86.311S Strain of muscle(s) and tendon(s) of peroneal muscle group at lower leg level, right leg, sequela; M25.371 Other instability, right ankle; F17.290 Nicotine dependence, other tobacco product, uncomplicated
CPT/HCPCS: 27691; 29898; 36415; 64445; 76000; 82948; 84703; 85025; 88304; C1763; J0690; J0702; J1100; J1171; J1885; J2250; J2405; J2704; J2795; J3010; Q0162